=== PATIENT | female | born 1960 | race African-American/Black ===

== ENCOUNTER 2022-09-19 19:19 | Inpatient (IN) | payer MEDICAID, OTHER ==
[~2022-09-19] VITALS: Ht 160 cm; Wt 106.2 kg
[2022-09-19 20:40] LABS: Albumin 3.5 g/dL (3.4-5.0); BUN/Creatinine Ratio 32.8; Calcium 9.1 mg/dL (8.5-10.1); Potassium 3.8 mmol/L (3.5-5.1)
[2022-09-19 20:41] LABS: Basophils # (auto) 0.1 10 ^3/uL (0-0.2); Basophils % (auto) 0.5 % (0.0-2.0); Eosinophils # (auto) 0.4 10 ^3/uL (0-0.8); Eosinophils % (auto) 3.7 % (0.0-7.0); Hematocrit 40.2 % (36.0-46.0); Hemoglobin 12.8 g/dL (12.2-16.2); Lymphocytes # (auto) 1.6 10 ^3/uL (0.4-5.4); Lymphocytes % (auto) 15.6 % (10.0-50.0); Mean Corpuscular Hemoglobin 28.3 pg (28.0-32.0); Mean Corpuscular Hgb Conc. 31.9 g/dL (32.0-36.0); Mean Corpuscular Volume 88.5 fL (80.0-100.0); Monocytes % (auto) 9.3 % (0.0-12.0); Neutrophils # (auto) 7.3 10 ^3/uL (1.6-8.6); Neutrophils % (auto) 70.9 % (37.0-80.0); Red Blood Cells 4.54 10^6/uL (4.0-5.20); White Blood Cell 10.3 10^3/uL (4.4-10.8)
[2022-09-19 20:43] LABS: Bilirubin, Total 0.4 mg/dL (0.2-1.0)
[2022-09-19 21:07] LABS: INR 0.97 (0.9-1.15); Partial Thromboplastin Time 28.4 sec (24.6-33.4)
[2022-09-19] MEDS ORDERED: BUDESONIDE (INHALATION) 0.5 MG/2 ML NEB NEB ONE (21:45)
[2022-09-19] MEDS ORDERED: FUROSEMIDE 40 MG/4 ML VIAL IV ONE (21:45)
[2022-09-19] MEDS ORDERED: DexAMETHasone SOD PHOS 10MG/1ML VIAL INJ IV ONE (21:45)
[2022-09-19] MEDS ORDERED: ALBUTEROL SULF 2.5 MG/0.5ML(0.5%) NEB SOLN NEB ONE (21:45)
[2022-09-19] MEDS ORDERED: ALBUTEROL MEDNEB 2.5 mg/3ml NEB ONE (21:50)
[2022-09-19] MEDS ORDERED: guaiFENesin 200 MG/10 ML UD PO ONE (22:15)
[2022-09-19] MEDS ORDERED: ONDANSETRON HCL 4 MG/2 ML VIAL IV PRN (23:00)
[2022-09-19] MEDS ORDERED: ACETAMINOPHEN 325 MG TAB PO PRN (23:00)
[2022-09-19] MEDS ORDERED: MORPHINE SULFATE 4 MG/ML SYR/VIAL IV PRN (23:00)
[2022-09-19] MEDS ORDERED: MORPHINE SULFATE INJ 2 MG/ml SYRG IV PRN (23:00)
[2022-09-19] MEDS ORDERED: NITROGLYCERIN 0.4 MG SL TAB SL PRN (23:00)
[2022-09-19] MEDS ORDERED: LORazepam 0.5 MG TAB PO PRN (23:00)
[2022-09-19] MEDS ORDERED: MAALOX PLUS or MAALOX 30 ML PO PRN (23:00)
[2022-09-19 23:08] VITALS: BP 161/75
[2022-09-19 23:19] LABS: Urine Bacteria FEW /hpf (None Seen); Urine Blood TRACE /uL (Negative); Urine Specific Gravity 1.008 (1.001-1.035); Urine WBC 1 /hpf (0 - 5)
[2022-09-19 23:41] LABS: Alcohol, Urine < 3.0 mg/dL (0-10); Amphetamine Screen, Urine NEGATIVE (NEGATIVE); Barbiturate Scree,Urine NEGATIVE (NEGATIVE); Benzodiazephine Screen, Urine NEGATIVE (NEGATIVE); Cannabinoid Screen, Urine POSITIVE (NEGATIVE); Cocaine Screen, Urine POSITIVE (NEGATIVE); Opiate Scree,Urine NEGATIVE (NEGATIVE); Phencyclidine Screen, Urine NEGATIVE (NEGATIVE)
[2022-09-19] MEDS: cefTRIAXone 1GM/50ML D5W 50 ML IV SCH (23:49)
[2022-09-20] MEDS: ZOLPIDEM TARTRATE 5 MG TAB PO PRN ×2 (00:07→21:52)
[2022-09-20] MEDS: AZITHROMYCIN 500MG/ 250ML 250 ML IV SCH ×2 (00:51→23:27)
[2022-09-20] MEDS: MORPHINE SULFATE INJ 2 MG/ml SYRG IV PRN ×5 (01:35→21:05)
[2022-09-20 06:41] LABS: Basophils # (auto) 0 10 ^3/uL (0-0.2); Basophils % (auto) 0.3 % (0.0-2.0); Eosinophils # (auto) 0 10 ^3/uL (0-0.8); Hematocrit 41.3 % (36.0-46.0); Hemoglobin 13.5 g/dL (12.2-16.2); Lymphocytes # (auto) 0.4 10 ^3/uL (0.4-5.4); Lymphocytes % (auto) 3.3 % (10.0-50.0); Mean Corpuscular Hemoglobin 28.6 pg (28.0-32.0); Mean Corpuscular Hgb Conc. 32.6 g/dL (32.0-36.0); Mean Corpuscular Volume 87.8 fL (80.0-100.0); Monocytes # (auto) 0.2 10 ^3/uL (0-1.3); Monocytes % (auto) 1.5 % (0.0-12.0); Neutrophils % (auto) 94.9 % (37.0-80.0); Nucleated Red Blood Cells % 0.1 %; Red Blood Cells 4.71 10^6/uL (4.0-5.20); Red Cell Distribution Width 18.4 % (11.8-14.3); White Blood Cell 13.7 10^3/uL (4.4-10.8)
[2022-09-20] MEDS ORDERED: ALBUTEROL MEDNEB 2.5 mg/3ml NEB ONE ×4 (06:47→22:15)
[2022-09-20 07:00] LABS: Potassium 4.1 mmol/L (3.5-5.1)
[2022-09-20 07:06] LABS: BUN/Creatinine Ratio 22.5; Calcium 9.4 mg/dL (8.5-10.1)
[2022-09-20] MEDS: DOCUSATE SOD 100 MG CAP PO SCH (09:52)
[2022-09-20] MEDS: ENOXAPARIN SOD 100 MG/1 ML SYRINGE SC SCH ×2 (09:52→21:50)
[2022-09-20] MEDS: methylPREDNISolone SOD SUCC 40 MG/ML VL IV SCH ×2 (09:52→21:50)
[2022-09-20] MEDS: CLOPIDOGREL BISULFATE 75 MG TAB PO SCH (09:52)
[2022-09-20] MEDS: ASPirin 81 mg TAB PO SCH (09:52)
[2022-09-20] MEDS: LISINOPRIL 5 MG TAB PO SCH (09:52)
[2022-09-20] MEDS: METOPROLOL TARTRATE 25 MG TAB PO SCH ×2 (09:54→22:00)
[2022-09-20] MEDS: ALBUTEROL SULF 2.5 MG/0.5ML(0.5%) NEB SOLN NEB SCH ×5 (10:00→22:55)
[2022-09-20] MEDS ORDERED: FUROSEMIDE 40 MG/4 ML VIAL IV SCH (10:00)
[2022-09-20] MEDS: IPRATROPIUM BROM 0.5 MG/2.5ML INH SOL NEB SCH ×5 (10:00→22:55)
[2022-09-20 12:30] VITALS: BP 151/64
[2022-09-20] MEDS ORDERED: TRAZ1TAB12 PO (13:29)
[2022-09-20] MEDS ORDERED: BACL5TAB2 PO (13:29)
[2022-09-20] MEDS ORDERED: CLOP75TA70 PO (13:29)
[2022-09-20] MEDS ORDERED: ISO60SRT PO (13:29)
[2022-09-20] MEDS ORDERED: POTA10TA32 PO (13:29)
[2022-09-20] MEDS ORDERED: PANT40T PO (13:29)
[2022-09-20] MEDS ORDERED: LURA20TA PO (13:29)
[2022-09-20] MEDS ORDERED: FURO40TA4 PO (13:29)
[2022-09-20] MEDS ORDERED: CARV12.544 PO (13:29)
[2022-09-20 16:28] VITALS: BP 148/68
[2022-09-20] MEDS: FUROSEMIDE 40 MG/4 ML VIAL IV SCH (17:06)
[2022-09-20 20:00] VITALS: BP 152/63
[2022-09-20] MEDS: ATORVASTATIN 20 MG TAB PO SCH (21:51)
[2022-09-20] MEDS: cefTRIAXone 1GM/50ML D5W 50 ML IV SCH (21:59)
[2022-09-20 22:00] VITALS: BP 152/63
[2022-09-21 05:00] VITALS: BP 129/53
[2022-09-21] MEDS: MORPHINE SULFATE INJ 2 MG/ml SYRG IV PRN ×4 (05:34→21:55)
[2022-09-21] MEDS ORDERED: ALBUTEROL MEDNEB 2.5 mg/3ml NEB ONE ×2 (05:53→09:21)
[2022-09-21] MEDS: FUROSEMIDE 40 MG/4 ML VIAL IV SCH (05:54)
[2022-09-21] MEDS: IPRATROPIUM BROM 0.5 MG/2.5ML INH SOL NEB SCH ×5 (06:08→22:15)
[2022-09-21] MEDS: ALBUTEROL SULF 2.5 MG/0.5ML(0.5%) NEB SOLN NEB SCH ×5 (06:08→22:15)
[2022-09-21 08:47] VITALS: BP 121/75
[2022-09-21] MEDS: ASPirin 81 mg TAB PO SCH (10:04)
[2022-09-21] MEDS: methylPREDNISolone SOD SUCC 40 MG/ML VL IV SCH ×2 (10:04→21:54)
[2022-09-21] MEDS: ENOXAPARIN SOD 100 MG/1 ML SYRINGE SC SCH ×2 (10:04→21:55)
[2022-09-21] MEDS: LISINOPRIL 5 MG TAB PO SCH (10:05)
[2022-09-21] MEDS: CLOPIDOGREL BISULFATE 75 MG TAB PO SCH (10:05)
[2022-09-21] MEDS: METOPROLOL TARTRATE 25 MG TAB PO SCH ×2 (10:05→21:54)
[2022-09-21] MEDS: DOCUSATE SOD 100 MG CAP PO SCH (10:05)
[2022-09-21 12:30] VITALS: BP 141/69
[2022-09-21 16:41] VITALS: BP 150/81
[2022-09-21] MEDS: FUROSEMIDE 40 MG TAB PO SCH (17:13)
[2022-09-21] MEDS: HYDROcodone-ACET 5/325MG TAB PO PRN (18:29)
[2022-09-21] MEDS: NITROGLYCERIN 0.4 MG SL TAB SL PRN ×2 (20:07→20:17)
[2022-09-21] MEDS: ATORVASTATIN 20 MG TAB PO SCH (21:54)
[2022-09-21 21:58] VITALS: BP 142/83
[2022-09-21] MEDS: cefTRIAXone 1GM/50ML D5W 50 ML IV SCH (23:22)
[2022-09-21] MEDS: guaiFENesin-DM 100/10mg/5ml SYR PO PRN (23:22)
[2022-09-21] MEDS: AZITHROMYCIN 500MG/ 250ML 250 ML IV SCH (23:45)
[2022-09-22] MEDS: MORPHINE SULFATE INJ 2 MG/ml SYRG IV PRN ×5 (02:58→21:38)
[2022-09-22 05:00] VITALS: BP 113/60
[2022-09-22] MEDS: FUROSEMIDE 40 MG TAB PO SCH ×2 (06:06→17:30)
[2022-09-22] MEDS: IPRATROPIUM BROM 0.5 MG/2.5ML INH SOL NEB SCH ×5 (06:07→22:12)
[2022-09-22] MEDS: ALBUTEROL SULF 2.5 MG/0.5ML(0.5%) NEB SOLN NEB SCH ×5 (06:07→22:12)
[2022-09-22] MEDS: guaiFENesin-DM 100/10mg/5ml SYR PO PRN ×3 (07:07→22:58)
[2022-09-22 09:00] VITALS: BP 125/71
[2022-09-22] MEDS: CLOPIDOGREL BISULFATE 75 MG TAB PO SCH (10:04)
[2022-09-22] MEDS: ASPirin 81 mg TAB PO SCH (10:04)
[2022-09-22] MEDS: ENOXAPARIN SOD 100 MG/1 ML SYRINGE SC SCH ×2 (10:04→21:38)
[2022-09-22] MEDS: DOCUSATE SOD 100 MG CAP PO SCH (10:04)
[2022-09-22] MEDS: methylPREDNISolone SOD SUCC 40 MG/ML VL IV SCH ×2 (10:04→21:37)
[2022-09-22] MEDS: LISINOPRIL 5 MG TAB PO SCH (10:05)
[2022-09-22] MEDS: METOPROLOL TARTRATE 25 MG TAB PO SCH ×2 (10:05→21:37)
[2022-09-22] MEDS ORDERED: PANTOPRAZOLE 40 MG TAB PO ONE (11:15)
[2022-09-22] MEDS: HYDROcodone-ACET 5/325MG TAB PO PRN ×2 (11:23→16:31)
[2022-09-22 13:00] VITALS: BP 140/81
[2022-09-22] MEDS ORDERED: ALBUTEROL MEDNEB 2.5 mg/3ml NEB ONE ×3 (14:10→22:08)
[2022-09-22 16:57] VITALS: BP 112/81
[2022-09-22 19:27] VITALS: BP 112/81
[2022-09-22] MEDS: ATORVASTATIN 20 MG TAB PO SCH (21:37)
[2022-09-22 22:00] VITALS: BP 150/87
[2022-09-22] MEDS: cefTRIAXone 1GM/50ML D5W 50 ML IV SCH (22:57)
[2022-09-22] MEDS: ZOLPIDEM TARTRATE 5 MG TAB PO PRN (22:58)
[2022-09-23] MEDS: AZITHROMYCIN 500MG/ 250ML 250 ML IV SCH (00:14)
[2022-09-23 05:00] VITALS: BP 142/72
[2022-09-23] MEDS ORDERED: ALBUTEROL MEDNEB 2.5 mg/3ml NEB ONE ×2 (05:55→10:25)
[2022-09-23] MEDS: MORPHINE SULFATE INJ 2 MG/ml SYRG IV PRN ×2 (05:58→11:24)
[2022-09-23] MEDS: FUROSEMIDE 40 MG TAB PO SCH (05:58)
[2022-09-23 07:08] LABS: Potassium 4.6 mmol/L (3.5-5.1)
[2022-09-23 07:10] LABS: Basophils # (auto) 0 10 ^3/uL (0-0.2); Basophils % (auto) 0.1 % (0.0-2.0); Eosinophils # (auto) 0 10 ^3/uL (0-0.8); Hematocrit 43.9 % (36.0-46.0); Hemoglobin 13.8 g/dL (12.2-16.2); Lymphocytes # (auto) 1.1 10 ^3/uL (0.4-5.4); Lymphocytes % (auto) 6.8 % (10.0-50.0); Mean Corpuscular Hemoglobin 28.1 pg (28.0-32.0); Mean Corpuscular Hgb Conc. 31.4 g/dL (32.0-36.0); Mean Corpuscular Volume 89.5 fL (80.0-100.0); Monocytes # (auto) 1.3 10 ^3/uL (0-1.3); Monocytes % (auto) 8.3 % (0.0-12.0); Neutrophils # (auto) 13.2 10 ^3/uL (1.6-8.6); Neutrophils % (auto) 84.8 % (37.0-80.0); Nucleated Red Blood Cells % 0.1 %; Red Blood Cells 4.91 10^6/uL (4.0-5.20); Red Cell Distribution Width 18.5 % (11.8-14.3); White Blood Cell 15.5 10^3/uL (4.4-10.8)
[2022-09-23 07:15] LABS: Albumin 3.3 g/dL (3.4-5.0); Bilirubin, Total 0.2 mg/dL (0.2-1.0); Calcium 8.9 mg/dL (8.5-10.1); Total Protein 6.9 g/dL (6.4-8.2)
[2022-09-23] MEDS: ALBUTEROL SULF 2.5 MG/0.5ML(0.5%) NEB SOLN NEB SCH ×3 (07:18→15:17)
[2022-09-23] MEDS: IPRATROPIUM BROM 0.5 MG/2.5ML INH SOL NEB SCH ×3 (07:18→15:17)
[2022-09-23 09:00] VITALS: BP 148/69
[2022-09-23] MEDS: CLOPIDOGREL BISULFATE 75 MG TAB PO SCH (09:01)
[2022-09-23] MEDS: ASPirin 81 mg TAB PO SCH (09:01)
[2022-09-23] MEDS: LISINOPRIL 5 MG TAB PO SCH (09:02)
[2022-09-23] MEDS: DOCUSATE SOD 100 MG CAP PO SCH (09:03)
[2022-09-23] MEDS: METOPROLOL TARTRATE 25 MG TAB PO SCH (09:03)
[2022-09-23] MEDS: HYDROcodone-ACET 5/325MG TAB PO PRN (09:04)
[2022-09-23] MEDS: methylPREDNISolone SOD SUCC 40 MG/ML VL IV SCH (09:04)
[2022-09-23] MEDS: ENOXAPARIN SOD 100 MG/1 ML SYRINGE SC SCH (09:04)
[2022-09-23] MEDS: guaiFENesin-DM 100/10mg/5ml SYR PO PRN (09:07)
[2022-09-23] MEDS ORDERED: predniSONE 20 MG TAB PO SCH (10:00)
[2022-09-23] MEDS ORDERED: PANTOPRAZOLE 40 MG TAB PO SCH (10:00)
[2022-09-23] MEDS ORDERED: UMEC1AER IN (11:38)
[2022-09-23] MEDS ORDERED: PRED20TA2 PO (11:38)
[2022-09-23] MEDS ORDERED: LIDOCAINE 2%HCL (LOCAL ANESTH.) INJ 20ML MDV ONE (12:26)
[2022-09-23] MEDS ORDERED: IODIXANOL 320MG/ML 100ML BTL IV ONE (12:26)
[2022-09-23 13:00] VITALS: BP 149/69
[2022-09-23 13:49] VITALS: BP 146/64
[2022-09-23] MEDS ORDERED: ALBU1.257 IN (14:37)
== END 2022-09-23 15:47 | disposition home or self-care (01) | DRG 139 ==
LOC: ER 19:19 → EDBD 19:19 → TELE 22:50 → TELE-CENTR 09-20 10:35
PROVIDERS: ADMIT Hospitalist; ATTEND Student in an Organized Health Care Education/Training Program
DX: J18.9 Pneumonia, unspecified organism (principal); I50.33 Acute on chronic diastolic (congestive) heart failure; J44.1 Chronic obstructive pulmonary disease with (acute) exacerbation; I27.20 Pulmonary hypertension, unspecified; I11.0 Hypertensive heart disease with heart failure; F17.210 Nicotine dependence, cigarettes, uncomplicated; E78.5 Hyperlipidemia, unspecified; E11.9 Type 2 diabetes mellitus without complications; Z20.822 Contact with and (suspected) exposure to COVID-19; R07.89 Other chest pain; E66.01 Morbid (severe) obesity due to excess calories; Z95.1 Presence of aortocoronary bypass graft; Z91.199 Patient's noncompliance with other medical treatment and regimen due to unspecified reason; Z68.41 Body mass index [BMI] 40.0-44.9, adult; Z83.3 Family history of diabetes mellitus; Z95.5 Presence of coronary angioplasty implant and graft
CPT/HCPCS: 36415; 71045; 80048; 80053; 80307; 81001; 83615; 83880; 84484; 85025; 85379; 85610; 85730; 87426; 87804; 93005; 93306; 94640; 96374; 96375; 96376; G0378; J0696; J1100; Q9967

== ENCOUNTER 2022-10-23 23:45 | Inpatient (IN) | payer MEDICAID ==
[~2022-10-23] VITALS: Ht 157.5 cm; Wt 90.0 kg
[~2022-10-23 23:45] MED LIST: ALBU1.257 IN; BACL5TAB2 PO; CARV12.544 PO; CLOP75TA70 PO; FURO40TA4 PO; ISO60SRT PO; LURA20TA PO; PANT40T PO; POTA10TA32 PO; PRED20TA2 PO; TRAZ1TAB12 PO; UMEC1AER IN
[2022-10-24 01:10] LABS: Basophils # (auto) 0.1 10 ^3/uL (0-0.2); Eosinophils # (auto) 0.3 10 ^3/uL (0-0.8); Eosinophils % (auto) 2.9 % (0.0-7.0); Hematocrit 43.4 % (36.0-46.0); Lymphocytes # (auto) 2.2 10 ^3/uL (0.4-5.4); Lymphocytes % (auto) 20.8 % (10.0-50.0); Mean Corpuscular Hemoglobin 28.6 pg (28.0-32.0); Mean Corpuscular Hgb Conc. 32.4 g/dL (32.0-36.0); Mean Corpuscular Volume 88.2 fL (80.0-100.0); Monocytes # (auto) 1.1 10 ^3/uL (0-1.3); Monocytes % (auto) 10.3 % (0.0-12.0); Neutrophils # (auto) 6.7 10 ^3/uL (1.6-8.6); Red Blood Cells 4.92 10^6/uL (4.0-5.20); Red Cell Distribution Width 18.4 % (11.8-14.3); White Blood Cell 10.4 10^3/uL (4.4-10.8)
[2022-10-24 01:26] LABS: INR 1.03 (0.9-1.15); Partial Thromboplastin Time 27.9 sec (24.6-33.4)
[2022-10-24 01:28] LABS: Albumin 3.6 g/dL (3.4-5.0); BUN/Creatinine Ratio 17.3; Calcium 8.9 mg/dL (8.5-10.1); Potassium 3.7 mmol/L (3.5-5.1)
[2022-10-24 01:31] LABS: Bilirubin, Total 0.3 mg/dL (0.2-1.0); Total Protein 7.3 g/dL (6.4-8.2)
[2022-10-24 01:42] LABS: Urine Bacteria FEW /hpf (None Seen); Urine Blood Negative /uL (Negative); Urine Specific Gravity 1.006 (1.001-1.035); Urine WBC <1 /hpf (0 - 5)
[2022-10-24] MEDS ORDERED: FUROSEMIDE 40 MG/4 ML VIAL IV ONE (03:00)
[2022-10-24] MEDS ORDERED: MORPHINE SULFATE INJ 2 MG/ml SYRG IV ONE (03:00)
[2022-10-24] MEDS ORDERED: ONDANSETRON HCL 4 MG/2 ML VIAL IV ONE (03:00)
[2022-10-24] MEDS ORDERED: IOHEXOL 350 MG/ML 100ML IJ ONE (04:50)
[2022-10-24] MEDS ORDERED: DOCUSATE SOD 100 MG CAP PO PRN (05:30)
[2022-10-24] MEDS ORDERED: MORPHINE SULFATE INJ 2 MG/ml SYRG IV PRN (05:30)
[2022-10-24] MEDS ORDERED: ONDANSETRON HCL 4 MG/2 ML VIAL IV PRN (05:30)
[2022-10-24] MEDS ORDERED: ACETAMINOPHEN 325 MG TAB PO PRN (05:30)
[2022-10-24] MEDS ORDERED: DEXTROSE (50%) 50ML SYRG IV PRN (05:30)
[2022-10-24] MEDS ORDERED: HYDROcodone-ACET 5/325MG TAB PO PRN (05:30)
[2022-10-24] MEDS ORDERED: NITROGLYCERIN 0.4 MG SL TAB SL PRN (05:30)
[2022-10-24] MEDS ORDERED: SODIUM CHLOR 0.9% PF (SALINE LOCK) 10ML VIAL/SYR IV SCH (06:00)
[2022-10-24 06:30] LABS: Basophils # (auto) 0 10 ^3/uL (0-0.2); Basophils % (auto) 0.5 % (0.0-2.0); Eosinophils # (auto) 0.3 10 ^3/uL (0-0.8); Eosinophils % (auto) 3.5 % (0.0-7.0); Hematocrit 42.9 % (36.0-46.0); Hemoglobin 13.6 g/dL (12.2-16.2); Lymphocytes # (auto) 2.1 10 ^3/uL (0.4-5.4); Lymphocytes % (auto) 22.6 % (10.0-50.0); Mean Corpuscular Hemoglobin 28.2 pg (28.0-32.0); Mean Corpuscular Hgb Conc. 31.8 g/dL (32.0-36.0); Mean Corpuscular Volume 88.8 fL (80.0-100.0); Monocytes % (auto) 10.4 % (0.0-12.0); Neutrophils # (auto) 5.8 10 ^3/uL (1.6-8.6); Nucleated Red Blood Cells % 0.1 %; Red Blood Cells 4.83 10^6/uL (4.0-5.20); Red Cell Distribution Width 17.8 % (11.8-14.3); White Blood Cell 9.2 10^3/uL (4.4-10.8)
[2022-10-24] MEDS ORDERED: ACCU-CHEK COMFORT CURVE STRIP VI SCH (07:00)
[2022-10-24] MEDS ORDERED: InsuLIN REG 1unit/0.01ml Soln (100units/ml) SC SCH (07:00)
[2022-10-24 07:13] LABS: Albumin 3.5 g/dL (3.4-5.0); Calcium 8.6 mg/dL (8.5-10.1); Potassium 3.2 mmol/L (3.5-5.1)
[2022-10-24 07:20] LABS: BUN/Creatinine Ratio 16.3; Bilirubin, Total 0.3 mg/dL (0.2-1.0)
[2022-10-24 09:10] VITALS: BP 177/73
[2022-10-24] MEDS ORDERED: FUROSEMIDE 40 MG/4 ML VIAL IV SCH (10:00)
[2022-10-24] MEDS ORDERED: ASPirin 81 mg TAB PO SCH (10:00)
[2022-10-24] MEDS ORDERED: ENOXAPARIN SOD 40 MG/0.4 ML SYRINGE SC SCH (10:00)
[2022-10-24] MEDS ORDERED: POTASSIUM CHL 20 Meq TABLET PO ONE (10:15)
== END 2022-10-24 10:23 | disposition home or self-care (01) | DRG 194 ==
LOC: ER 23:45 → EDBD 23:45 → TELE 10-24 05:32
PROVIDERS: ADMIT Nurse Practitioner Family; ATTEND Internal Medicine
DX: I11.0 Hypertensive heart disease with heart failure (principal); J96.21 Acute and chronic respiratory failure with hypoxia; R07.9 Chest pain, unspecified; I50.23 Acute on chronic systolic (congestive) heart failure; E11.9 Type 2 diabetes mellitus without complications; E66.9 Obesity, unspecified; Z20.822 Contact with and (suspected) exposure to COVID-19; T40.5X5A Adverse effect of cocaine, initial encounter; E78.5 Hyperlipidemia, unspecified; F14.90 Cocaine use, unspecified, uncomplicated; J44.9 Chronic obstructive pulmonary disease, unspecified; Z68.36 Body mass index [BMI] 36.0-36.9, adult; I25.2 Old myocardial infarction; Z83.3 Family history of diabetes mellitus; Y92.89 Other specified places as the place of occurrence of the external cause
CPT/HCPCS: 36415; 71275; 80053; 81001; 82962; 83880; 84484; 85025; 85379; 85610; 85730; 87426; 93005; 96372; 96374; 96375; 96376; G0378; J2405